=== PATIENT | male | born 1945 | race Caucasian/White ===

== ENCOUNTER 2017-01-30 12:05 | Day surgery (SDC) | payer MEDICARE, OTHER ==
[~2017-01-30] VITALS: Ht 172.7 cm; Wt 103.3 kg
--- NOTE | 2017-02-16 08:33 | OR ---
ADMIT: 01/30/2017 RM/LOC: [facility] MR#: [id number] ACC#: [id number] [address] [place] [address] [place] [address] Operative/Delivery Room Report SEX: M AGE: 71 : 1945 SURGERY DATE: 01/30/2017 SURGEON: Ashok Chambers MD PREOPERATIVE DIAGNOSES: 1. Bilateral ureteral calculi. 2. Renal insufficiency. POSTOPERATIVE DIAGNOSES: 1. Bilateral ureteral calculi. 2. Renal insufficiency. 3. Severe right hydronephrosis and moderate left hydronephrosis. PROCEDURES: Cystoscopy, bilateral retrograde pyelogram, bilateral ureteral stent placement, attempted right ureteroscopy with holmium laser lithotripsy. ANESTHESIA: General. INDICATION: The patient is a pleasant white male, who presents with obstructing bilateral ureteral calculi. Given obstructive phenomenon, renal insufficiency, and ongoing patient's symptoms which were mainly on the left surprisingly enough, we have decided to proceed to the operating room. Risks and benefits were discussed. Preoperative antibiotics were given. DESCRIPTION OF PROCEDURE: The patient was taken to OR #5, placed on the table in supine position. After adequate anesthesia, transferred to dorsal lithotomy position, prepped and draped in the usual fashion. A time-out was taken confirming patient name, date of , planned procedure, preoperative antibiotics, and allergies. A 22-Wolof cystoscope with 30-degree lens was advanced to the level of the bladder. The urethra was unremarkable. Prostate demonstrates some mild lateral lobe enlargement. No significant elevation of bladder neck or median lobe component. Upon entering the bladder, the ureteral orifice visualized in all normal positions. The bladder mucosa otherwise pink without suspicious erythema or papillary lesion. No stones, foreign bodies, or tumors identified. An 8-Wolof cone-tipped catheter with full strength contrast was used to create a retrograde pyelogram on the left. The intramural tunnel was somewhat narrow. The ureter is very tortuous. I met transverse process of L3, is a filling defect consistent with stone. This did migrate proximally with injection of contrast. I did outline the collecting system. The caliceal structures were moderately dilated. The renal pelvis was moderately dilated. I see some filling defect within the renal pelvis consistent with stones noted on CT scan. At this point, the cone-tipped catheter was removed. An angled tip Glidewire was then advanced up in the upper collecting system. The cystoscope was removed. I did go ahead and pass a 6-Wolof ureteral access ADMIT: 01/30/2017 RM/LOC: [facility] MR#: [id number] [address] [address] ZACK BOLDEN [address] [address] Operative/Delivery Room Report SEX: M AGE: 71 : 1945 catheter in the upper collecting system. With removal of the guidewire, we had a nice brisk hydronephrotic drip. Did inject some more contrast outlining a fairly complex system. Not a real large renal pelvis although there was some dilation here, but basically very long calyceal infundibulum, two moderately dilated calices. I did reposition the wire to middle pole calyx and the ureteral access catheter was removed. The guidewire was backloaded through the cystoscope. Cystoscope was advanced to the level of the bladder. Under direct fluoroscopic visualization, a 6-Wolof 26 cm double-J stent was placed. With removal of the guidewire, we had a nice curl within the renal pelvis, nice curl within the bladder. We turned our attention on to the right. With injection of contrast, the distal ureter was unremarkable. However, distal to the pelvic brim, there was a filling defect consistent with 1 cm stone noted on CT scan. This is sort of encased. There was a stenosis both distal and proximal to the stone, and then there is essentially what I would term severe or massive hydronephrosis and dilation of the ureter proximal to this. The cone-tipped catheter was removed. I did go ahead and try to pass an angled-tip Glidewire and quite frankly was unsuccessful in doing so. Therefore, I went ahead and just removed the cystoscope and planned on doing a semirigid ureteroscopy. The semi-rigid ureteroscope was then advanced back to the level of ureteral orifice. I did use a straight Glidewire and did follow the wire into the distal ureter. I was able to negotiate the guidewire past the level of the stone and into the upper collecting system under fluoroscopic visualization. With this, I did go ahead and remove the ureteroscope secured this wire as a safety wire. I replaced the scope back into the bladder. With a secondary guidewire, I was able to access the distal ureter, followed this wire up to the level of the stone. It was severely impacted. I suspect that this has been here for a very long time. I did go ahead with manipulation. With the beak of the scope, I was able to maneuver the stone back into a more dilated ureter. I did pass a 400 micron holmium laser fiber and the stone was aggressively fragmented. I did not basket these fragments out given the severe stenosis and inflammation where the stone had been impacted. Once I was satisfied degree of our laser lithotripsy, the laser fiber was removed as well as the ureteroscope. I did go ahead and pass a ureteral access catheter over the indwelling guidewire into the upper collecting system. With removal of the guidewire, we had a brisk hydronephrotic drip. I did inject contrast outlining a massively dilated renal pelvis, caliceal structures. All were blunted. I did replace the guidewire and the ureteral access catheter was removed. The guidewire was backloaded through the cystoscope. Cystoscope was advanced to the level of the bladder. Under direct fluoroscopic visualization, a 6-Wolof 24 cm double- J stent was placed. With removal of the guidewire, we had a nice curl within the pelvis, nice curl in the urinary bladder. The bladder was decompressed, the scope was withdrawn. The patient taken out of dorsal lithotomy position, extubated uneventfully, and transferred to recovery room in stable condition. ADMIT: 01/30/2017 RM/LOC: [facility] MR#: [id number] [address] [address] YUANEDUAR KOCONDE [address] [facility] [address] [place] [address] Operative/Delivery Room Report SEX: M AGE: 71 : 1945 DISPOSITION: The patient will be discharged home later on today. DISCHARGE MEDICATIONS: Include: 1. Levaquin 250 mg p.o. daily. 2. Lortab 5/325 one to two every 4-6 hours as needed pain. 3. Pyridium 200 mg, one p.o. t.i.d. p.r.n., dispense #20 with one refill. I will have the patient back in a week. We will get a followup urinalysis as well as a basic metabolic panel. I think in the end, I suspect these are uric acid calculi. We will have to schedule an another look into the right side to make sure there were no residual fragments. I want give plenty of time for the area where the stone was impacted to dilate. Once left ureter has dilated as well, we have to undertake flexible ureteroscopy to deal with the left renal calculi. Ashok Chambers MD/ july JOB #: [id number] CC: Ashok Chambers, Attending Physician Christian Garcia, Family Physician
[2017-03-23] MEDS ORDERED: DIFLUCAN DPS200 MG PO (08:17)
[2017-03-23] MEDS ORDERED: AMOXIL-DPS500 MG PO (08:17)
[2017-03-23] MEDS ORDERED: TYLENOL DPS325 MG PO (08:18)
[2017-03-23] MEDS ORDERED: TOPROL XL DPS50 MG PO (08:18)
[2017-03-23] MEDS ORDERED: SYNTHROID125 MCG PO (08:18)
[2017-03-23] MEDS ORDERED: VITAMIN D1000 UNI1 PO (08:19)
[2017-03-23] MEDS ORDERED: ZOCOR DPS40 MG PO (08:19)
[2017-03-23] MEDS ORDERED: NOVOLIN 70100 UNITS/ SQ (08:19)
[2017-03-23] MEDS ORDERED: CHLORASEPTIC SPR6 OZ PO (08:21)
[2017-03-23] MEDS ORDERED: NOVOLOG100 UNIT/2 SQ (08:21)
[2017-03-23] MEDS ORDERED: TESSALON PERLE100 M1 PO (08:22)
[2017-03-23] MEDS ORDERED: COLACE-DPS100 MG PO (08:22)
[2017-03-23] MEDS ORDERED: DUONEB DPS3 ML IH (08:22)
[2017-03-23] MEDS ORDERED: MAALOX DPS30 ML PO (08:22)
[2017-03-23] MEDS ORDERED: GLUCAGON HCL1 MG IM (08:23)
[2017-03-23] MEDS ORDERED: TYLENOL-DPS650 MG PR (08:23)
[2017-03-23] MEDS ORDERED: COUMADIN5 MG PO (08:24)
[2017-03-23] MEDS ORDERED: ZOFRAN DPS4 MG/2 ML (08:24)
[2017-03-23] MEDS ORDERED: COUMADIN2.5 MG PO (08:25)
[2017-03-23] MEDS ORDERED: ALPHA LIPOIC A200 MG PO (08:26)
== END 2017-01-30 18:40 | disposition home or self-care (01) ==
LOC: SSS 12:05
DX: N13.2 Hydronephrosis with renal and ureteral calculous obstruction (principal); N28.9 Disorder of kidney and ureter, unspecified; I10 Essential (primary) hypertension; Z95.0 Presence of cardiac pacemaker; E03.9 Hypothyroidism, unspecified; I48.91 Unspecified atrial fibrillation; E66.9 Obesity, unspecified; E11.9 Type 2 diabetes mellitus without complications; Z88.8 Allergy status to other drugs, medicaments and biological substances; Z79.899 Other long term (current) drug therapy; Z88.1 Allergy status to other antibiotic agents